=== PATIENT | female | born 1980 | race Caucasian/White ===

== ENCOUNTER 2016-12-19 16:12 | Emergency (ER) | payer MEDICAID ==
[~2016-12-19] VITALS: Ht 157.5 cm; Wt 86.4 kg
[2016-12-19 16:13] VITALS: BP 152/105; TEMP 98.7
[2016-12-19] MEDS ORDERED: COMPAZINE 110 MG/TAB PO (17:03)
[2016-12-19 17:57] VITALS: PULSE 75
== END 2016-12-19 17:57 | disposition home or self-care (01) ==
LOC: COL.ER 16:12
DX: R51 Headache (principal); H53.8 Other visual disturbances; R11.2 Nausea with vomiting, unspecified
CPT/HCPCS: J1200; J1885; J2550; J3010; J7030

== ENCOUNTER 2017-01-05 00:54 | Emergency (ER) | payer MEDICAID ==
[~2017-01-05] VITALS: Ht 157.5 cm; Wt 90.9 kg
[~2017-01-05 00:54] MED LIST: COMPAZINE 110 MG/TAB PO
[2017-01-05 00:55] VITALS: TEMP 97.1
[2017-01-05 01:49] LABS: BASO % 0.3 % (0.0-2.0); EOS # 0.1 (0.0-0.7); EOS % 1.9 % (0-4.0); GRAN # 4.2 (1.4-6.5); HEMATOCRIT 39.9 % (37.0-47.0); HEMOGLOBIN 12.9 g/dl (12.5-16.0); LYMPH % 30.1 % (20.0-51.0); MEAN CELL VOLUME 84 fl (80.0-100.0); MEAN CORPUSCULAR HEMOGLOBIN 27 pg (27.0-31.0); MEAN CORPUSCULAR HGB CONC 32 g/dl (33.0-37.0); MEAN PLATELET VOLUME 9.4 fl (7.4-10.4); MONO # 0.3 (0.1-0.6); MONO % 4.6 % (1.7-9.3); PLATELET COUNT 278 K/mm3 (130-400); RED BLOOD COUNT 4.77 M/mm3 (4.10-5.30); REDCELL DISTRIBUTION WIDTH-CV 13.9 % (11.5-14.5); WHITE BLOOD COUNT 6.7 K/mm3 (4.8-10.8)
[2017-01-05] MEDS ORDERED: TRI-SPRINTEC 281 TAB PO (02:33)
[2017-01-05 02:59] VITALS: BP 152/86; PULSE 82
== END 2017-01-05 03:00 | disposition home or self-care (01) ==
LOC: COL.ER 00:54
PROVIDERS: Emergency Medicine
DX: N93.8 Other specified abnormal uterine and vaginal bleeding (principal)

== ENCOUNTER 2017-08-09 00:04 | Emergency (ER) | payer MEDICAID ==
[~2017-08-09] VITALS: Ht 157.5 cm; Wt 86.4 kg
[~2017-08-09 00:04] MED LIST changes: +TRI-SPRINTEC 281 TAB PO
[2017-08-09 00:07] VITALS: BP 177/94; TEMP 99.3
[2017-08-09] MEDS ORDERED: PREDNISONE20 MG PO (00:22)
[2017-08-09 01:33] VITALS: PULSE 87
== END 2017-08-09 01:33 | disposition home or self-care (01) ==
LOC: COL.ER 00:04
DX: J45.901 Unspecified asthma with (acute) exacerbation (principal); Z98.51 Tubal ligation status
CPT/HCPCS: J7512

== ENCOUNTER 2017-10-12 10:47 | Emergency (ER) | payer MEDICAID ==
[~2017-10-12] VITALS: Ht 157.5 cm; Wt 86.4 kg
[~2017-10-12 10:47] MED LIST changes: +PREDNISONE20 MG PO
[2017-10-12 10:50] VITALS: BP 176/95; TEMP 98.3
[2017-10-12 12:34] VITALS: PULSE 77
== END 2017-10-12 12:34 | disposition home or self-care (01) ==
LOC: COL.ER 10:47
DX: G43.909 Migraine, unspecified, not intractable, without status migrainosus (principal)
CPT/HCPCS: J1200; J1885; J2765; J7030

== ENCOUNTER 2018-06-13 15:39 | Emergency (ER) | payer MEDICAID ==
[~2018-06-13] VITALS: Ht 157.5 cm; Wt 86.4 kg
[2018-06-13 15:43] VITALS: TEMP 99.4
[2018-06-13 16:23] LABS: BASO % 0.1 % (0.0-2.0); EOS # 0.1 (0.0-0.7); EOS % 1.1 % (0-4.0); GRAN # 8.5 (1.4-6.5); GRAN % 80.9 % (42.2-75.2); HEMATOCRIT 41.2 % (37.0-47.0); HEMOGLOBIN 13.6 g/dl (12.5-16.0); LYMPH # 1.5 (1.2-3.4); LYMPH % 13.9 % (20.0-51.0); MEAN CELL VOLUME 82 fl (80.0-100.0); MEAN CORPUSCULAR HEMOGLOBIN 27 pg (27.0-31.0); MEAN CORPUSCULAR HGB CONC 33 g/dl (33.0-37.0); MEAN PLATELET VOLUME 9.7 fl (7.4-10.4); MONO # 0.4 (0.1-0.6); MONO % 3.7 % (1.7-9.3); PLATELET COUNT 305 K/mm3 (130-400); REDCELL DISTRIBUTION WIDTH-CV 13.8 % (11.5-14.5)
[2018-06-13 16:37] LABS: ALBUMIN 4.1 gm/dL (3.5-5.0); BILIRUBIN,TOTAL 0.7 mg/dL (0.0-1.0); C-REACTIVE PROTEIN 3.5 mg/dL (0.0-0.9); CALCIUM 8.5 mg/dL (8.4-10.2); CREATININE, serum 0.54 mg/dL (0.52-1.25); POTASSIUM 3.7 mmol/L (3.4-5.0); TOTAL PROTEIN 7.8 gm/dL (6.4-8.2)
[2018-06-13 18:13] LABS: COLLECTION METHOD CLEAN CATCH
[2018-06-13 18:19] VITALS: BP 146/91
[2018-06-13 18:23] LABS: PH 5 (5-8); SQUAMOUS EPITHELIAL 0-2 /hpf; URINE APPEARANCE Clear; URINE BACTERIA None Seen /hpf; URINE BILIRUBIN Negative (NEGATIVE); URINE BLOOD 1+ (NEGATIVE); URINE COLOR Straw; URINE GLUCOSE Negative (NEGATIVE); URINE KETONE Negative (NEGATIVE); URINE LEUKOCYTE ESTERASE Negative (NEGATIVE); URINE NITRATE Negative (NEGATIVE); URINE PROTEIN(semi-quant) Negative (NEGATIVE); URINE RBC 0-2 /hpf; URINE UROBILINOGEN Negative (NEGATIVE)
[2018-06-13] MEDS ORDERED: FLAGYL500 MG PO (18:50)
[2018-06-13] MEDS ORDERED: NORCO 325 MG-51 TAB PO (18:50)
[2018-06-13] MEDS ORDERED: SEPTRA DS 8001 TAB PO (18:50)
[2018-06-13] MEDS ORDERED: ZOFRAN ODT4 MG PO (18:50)
[2018-06-13 19:05] VITALS: PULSE 89
== END 2018-06-13 19:15 | disposition home or self-care (01) ==
LOC: COL.ER 15:39
PROVIDERS: Emergency Medicine
DX: K57.92 Diverticulitis of intestine, part unspecified, without perforation or abscess without bleeding (principal); E11.9 Type 2 diabetes mellitus without complications; Z79.84 Long term (current) use of oral hypoglycemic drugs; Z98.51 Tubal ligation status; Z98.890 Other specified postprocedural states
CPT/HCPCS: J1885; J2405; J2550; J7030; Q9967

== ENCOUNTER 2018-08-15 10:14 | Emergency (ER) | payer MEDICAID ==
[~2018-08-15] VITALS: Ht 157.5 cm; Wt 81.8 kg
[~2018-08-15 10:14] MED LIST changes: +FLAGYL500 MG PO; +NORCO 325 MG-51 TAB PO; +SEPTRA DS 8001 TAB PO; +ZOFRAN ODT4 MG PO
[2018-08-15 10:20] VITALS: BP 163/76; TEMP 97.9
[2018-08-15] MEDS ORDERED: GLUCOPHAGE500 MG/TAB PO (11:24)
[2018-08-15 12:00] VITALS: PULSE 80
== END 2018-08-15 12:00 | disposition home or self-care (01) ==
LOC: COL.ER 10:14
DX: G43.909 Migraine, unspecified, not intractable, without status migrainosus (principal); Z90.710 Acquired absence of both cervix and uterus; Z98.51 Tubal ligation status; Z98.890 Other specified postprocedural states; Z88.1 Allergy status to other antibiotic agents
CPT/HCPCS: J1200; J1885; J2765; J7030

== ENCOUNTER 2019-01-09 18:20 | Emergency (ER) | payer MEDICAID ==
[~2019-01-09] VITALS: Ht 157.5 cm; Wt 90.0 kg
[~2019-01-09 18:20] MED LIST changes: +GLUCOPHAGE500 MG/TAB PO
[2019-01-09 18:26] VITALS: BP 163/92; PULSE 102
[2019-01-09] MEDS ORDERED: ZITHROMAX Z PA250 MG PO ×2 (19:35)
[2019-01-09] MEDS ORDERED: AMOXICILLIN 8751 TAB PO (19:36)
[2019-01-09 20:05] VITALS: TEMP 99
== END 2019-01-09 20:05 | disposition home or self-care (01) ==
LOC: COL.ER 18:20
DX: R50.9 Fever, unspecified (principal); J45.909 Unspecified asthma, uncomplicated; Z98.890 Other specified postprocedural states; Z98.51 Tubal ligation status

== ENCOUNTER 2019-05-04 06:28 | Emergency (ER) | payer MEDICAID ==
[~2019-05-04] VITALS: Ht 157.5 cm; Wt 87.7 kg
[~2019-05-04 06:28] MED LIST changes: +AMOXICILLIN 8751 TAB PO; +ZITHROMAX Z PA250 MG PO
[2019-05-04 07:16] LABS: STREP SCREEN POSITIVE
[2019-05-04] MEDS ORDERED: CEPHALEXIN500 M1 PO (07:30)
[2019-05-04 07:35] VITALS: BP 131/78; PULSE 79; TEMP 98.9
== END 2019-05-04 07:44 | disposition home or self-care (01) ==
LOC: COL.ER 06:28
PROVIDERS: Emergency Medicine
DX: J02.0 Streptococcal pharyngitis (principal)

== ENCOUNTER 2019-10-06 13:27 | Emergency (ER) | payer SELFPAY ==
[~2019-10-06 13:27] MED LIST changes: +CEPHALEXIN500 M1 PO
[2019-10-06 13:36] VITALS: TEMP 97.9
[2019-10-06 14:38] VITALS: BP 139/82
[2019-10-06 15:16] VITALS: PULSE 71
== END 2019-10-06 15:17 | disposition home or self-care (01) ==
LOC: COL.ER 13:27
DX: G43.909 Migraine, unspecified, not intractable, without status migrainosus (principal); Z90.710 Acquired absence of both cervix and uterus; Z88.1 Allergy status to other antibiotic agents; Z98.51 Tubal ligation status; Z98.890 Other specified postprocedural states; Z79.84 Long term (current) use of oral hypoglycemic drugs
CPT/HCPCS: J1200; J1885; J2765; J7030

== ENCOUNTER 2020-06-24 16:33 | Emergency (ER) | payer MEDICAID ==
[~2020-06-24] VITALS: Ht 157.5 cm; Wt 84.1 kg
[2020-06-24 16:41] VITALS: TEMP 98.6
[2020-06-24] MEDS ORDERED: ZOFRAN 4MG T4 MG/TAB PO (17:53)
[2020-06-24 18:10] VITALS: BP 143/70; PULSE 80
== END 2020-06-24 18:10 | disposition home or self-care (01) ==
LOC: COL.ER 16:33
DX: Z20.828 Contact with and (suspected) exposure to other viral communicable diseases (principal); Z98.51 Tubal ligation status; E66.9 Obesity, unspecified; E11.9 Type 2 diabetes mellitus without complications; Z79.84 Long term (current) use of oral hypoglycemic drugs

== ENCOUNTER 2020-07-18 02:51 | Emergency (ER) | payer MEDICAID ==
[~2020-07-18] VITALS: Ht 157.5 cm; Wt 84.1 kg
[~2020-07-18 02:51] MED LIST changes: +ZOFRAN 4MG T4 MG/TAB PO
[2020-07-18 02:58] VITALS: TEMP 97.5
[2020-07-18 03:37] LABS: EOS % 0.5 % (0-4.0); GRAN # 2.5 (1.4-6.5); HEMATOCRIT 43.2 % (37.0-47.0); HEMOGLOBIN 14.3 g/dl (12.5-16.0); LYMPH # 1.2 (1.2-3.4); LYMPH % 29.9 % (20.0-51.0); MEAN CELL VOLUME 82 fl (80.0-100.0); MEAN CORPUSCULAR HEMOGLOBIN 27 pg (27.0-31.0); MEAN CORPUSCULAR HGB CONC 33 g/dl (33.0-37.0); MEAN PLATELET VOLUME 9.4 fl (7.4-10.4); MONO # 0.2 (0.1-0.6); MONO % 5.3 % (1.7-9.3); PLATELET COUNT 238 K/mm3 (130-400); RED BLOOD COUNT 5.27 M/mm3 (4.10-5.30); REDCELL DISTRIBUTION WIDTH-CV 13.9 % (11.5-14.5)
[2020-07-18 03:45] LABS: ALBUMIN 4.3 gm/dL (3.5-5.0); BILIRUBIN,TOTAL 0.5 mg/dL (0.0-1.0); CALCIUM 8.6 mg/dL (8.4-10.2); CREATININE, serum 0.52 (0.52-1.25)
[2020-07-18 04:38] VITALS: BP 125/78; PULSE 80
== END 2020-07-18 04:38 | disposition home or self-care (01) ==
LOC: COL.ER 02:51
PROVIDERS: Emergency Medicine
DX: U07.1 COVID-19 (principal); Z90.710 Acquired absence of both cervix and uterus

== ENCOUNTER 2021-07-23 12:34 | Emergency (ER) | payer MEDICAID ==
[~2021-07-23] VITALS: Ht 157.5 cm; Wt 86.4 kg
[2021-07-23 13:03] LABS: BASO % 0.4 % (0.0-2.0); EOS # 0.1 (0.0-0.7); EOS % 1.1 % (0-4.0); GRAN # 5.2 (1.4-6.5); GRAN % 69.6 % (42.2-75.2); HEMATOCRIT 42.1 % (37.0-47.0); LYMPH # 1.8 (1.2-3.4); MEAN CELL VOLUME 81 fl (80.0-100.0); MEAN CORPUSCULAR HEMOGLOBIN 27 pg (27.0-31.0); MEAN CORPUSCULAR HGB CONC 33 g/dl (33.0-37.0); MEAN PLATELET VOLUME 9.3 fl (7.4-10.4); MONO # 0.4 (0.1-0.6); MONO % 4.8 % (1.7-9.3); PLATELET COUNT 326 K/mm3 (130-400); RED BLOOD COUNT 5.17 M/mm3 (4.10-5.30); REDCELL DISTRIBUTION WIDTH-CV 14.2 % (11.5-14.5)
[2021-07-23 13:23] LABS: COLLECTION METHOD CLEAN CATCH
[2021-07-23 13:33] LABS: ALBUMIN 3.9 gm/dL (3.5-5.0); BILIRUBIN,TOTAL 0.7 mg/dL (0.2-1.2); C-REACTIVE PROTEIN 1.2 mg/dL (0.00-0.50); CALCIUM 9.4 mg/dL (8.4-10.2); CREATININE, serum 0.76 mg/dL (0.57-1.11); POTASSIUM 3.6 mmol/L (3.5-4.5); TOTAL PROTEIN 7.9 gm/dL (6.2-8.1)
[2021-07-23 13:45] LABS: AMORPHOUS CRYSTAL Present /uL; MUCOUS Present /lpf; PH 5 (5-8); URINE APPEARANCE Cloudy; URINE BACTERIA Occasional /hpf; URINE BILIRUBIN Negative (NEGATIVE); URINE BLOOD 3+ (NEGATIVE); URINE COLOR Yellow; URINE GLUCOSE Negative (NEGATIVE); URINE KETONE Trace (NEGATIVE); URINE LEUKOCYTE ESTERASE 1+ (NEGATIVE); URINE NITRATE Negative (NEGATIVE); URINE PROTEIN(semi-quant) 2+ (NEGATIVE); URINE RBC >50 /hpf; URINE UROBILINOGEN Negative (NEGATIVE)
[2021-07-23] MEDS ORDERED: NORCO 325 MG-51 TAB PO (14:46)
[2021-07-23] MEDS ORDERED: OMNICEF 300MG300 MG PO (15:23)
[2021-07-23 15:45] VITALS: BP 148/78; PULSE 74; TEMP 97.9
== END 2021-07-23 15:45 | disposition home or self-care (01) ==
LOC: COL.ER 12:34
PROVIDERS: Family Medicine
DX: N13.2 Hydronephrosis with renal and ureteral calculous obstruction (principal); I10 Essential (primary) hypertension; Z88.1 Allergy status to other antibiotic agents; Z32.02 Encounter for pregnancy test, result negative
CPT/HCPCS: J2270; J2405; J7120; Q9967

== ENCOUNTER → 2021-09-12 | Outpatient (CLI) | payer MEDICAID ==
[~2021-09-12] MED LIST changes: +OMNICEF 300MG300 MG PO
== END ==
LOC: COL.RAD 08:49
DX: N99.81 Other intraoperative complications of genitourinary system (principal)

== ENCOUNTER 2022-04-03 20:44 | Emergency (ER) | payer MEDICAID ==
[~2022-04-03] VITALS: Ht 157.5 cm; Wt 91.8 kg
[2022-04-03 23:54] LABS: BASO % 0.3 % (0.0-2.0); EOS # 0.1 K/mm3 (0.0-0.7); EOS % 1.5 % (0.0-4.0); GRAN # 4.8 K/mm3 (1.4-6.5); GRAN % 65.5 % (42.2-75.2); HEMATOCRIT 37.9 % (37.0-47.0); HEMOGLOBIN 12.3 g/dl (12.5-16.0); LYMPH % 27.5 % (20.0-51.0); MEAN CELL VOLUME 82 fl (80.0-100.0); MEAN CORPUSCULAR HEMOGLOBIN 27 pg (27-31); MEAN CORPUSCULAR HGB CONC 33 g/dl (33.0-37.0); MEAN PLATELET VOLUME 9.2 fl (7.4-10.4); MONO # 0.4 K/mm3 (0.1-0.6); MONO % 4.9 % (1.7-9.3); PLATELET COUNT 276 K/mm3 (130-400); RED BLOOD COUNT 4.63 M/mm3 (4.10-5.30); REDCELL DISTRIBUTION WIDTH-CV 14.2 % (11.5-14.5)
[2022-04-04 00:13] LABS: ALBUMIN 3.2 gm/dL (3.5-5.0); BILIRUBIN,TOTAL 0.4 mg/dL (0.2-1.2); C-REACTIVE PROTEIN 1.85 mg/dL (0.00-0.50); CALCIUM 8.6 mg/dL (8.4-10.2); CREATININE, serum 0.65 mg/dL (0.57-1.11); POTASSIUM 3.5 mmol/L (3.5-4.5); TOTAL PROTEIN 6.8 gm/dL (6.2-8.1)
[2022-04-04 01:37] VITALS: TEMP 98
[2022-04-04] MEDS ORDERED: CEPHALEXIN500 M1 PO (03:19)
[2022-04-04 03:43] VITALS: BP 115/80; PULSE 72
== END 2022-04-04 03:46 | disposition home or self-care (01) ==
LOC: COL.ER 20:44
PROVIDERS: Nurse Practitioner
DX: R59.0 Localized enlarged lymph nodes (principal); Z88.1 Allergy status to other antibiotic agents
CPT/HCPCS: J1170; Q9967

== ENCOUNTER 2024-05-02 11:23 | Emergency (ER) | payer MEDICAID ==
[~2024-05-02] VITALS: Ht 157.5 cm; Wt 63.6 kg
[2024-05-02 11:40] VITALS: TEMP 98.6
[2024-05-02] MEDS ORDERED: NS 1,000 ML IV ONE (12:00)
[2024-05-02 12:10] LABS: COLLECTION METHOD CLEAN CATCH
[2024-05-02 12:19] LABS: BASO % 0.4 % (0.0-2.0); EOS # 0.1 K/mm3 (0.0-0.7); EOS % 1.8 % (0.0-4.0); GRAN % 59.3 % (42.2-75.2); HEMATOCRIT 43.1 % (37.0-47.0); HEMOGLOBIN 13.9 g/dl (12.5-16.0); LYMPH # 1.7 K/mm3 (1.2-3.4); LYMPH % 33.5 % (20.0-51.0); MEAN CELL VOLUME 90 fl (80.0-100.0); MEAN CORPUSCULAR HEMOGLOBIN 29 pg (27-31); MEAN CORPUSCULAR HGB CONC 32 g/dl (33.0-37.0); MEAN PLATELET VOLUME 9.8 fl (7.4-10.4); MONO # 0.3 K/mm3 (0.1-0.6); PLATELET COUNT 270 K/mm3 (130-400)
[2024-05-02 12:22] LABS: URINE APPEARANCE CLEAR (CLEAR/HAZY); URINE BLOOD NEGATIVE (NEGATIVE); URINE COLOR YELLOW (YELLOW); URINE GLUCOSE NEGATIVE (NEGATIVE); URINE KETONE NEGATIVE (NEGATIVE); URINE NITRATE NEGATIVE (NEGATIVE); URINE PROTEIN(semi-quant) NEGATIVE (NEGATIVE); URINE UROBILINOGEN 0.2 E.U/dL (0.2-1.0)
[2024-05-02 12:29] LABS: MONOSCREEN NEGATIVE
[2024-05-02 12:37] LABS: ALBUMIN 3.7 g/dL (3.5-5.0); BILIRUBIN,TOTAL 0.8 mg/dL (0.2-1.2); CALCIUM 9.6 mg/dL (8.4-10.2); CREATININE, serum 0.65 mg/dL (0.57-1.11); POTASSIUM 3.6 mEq/L (3.5-4.5); TOTAL PROTEIN 6.9 g/dl (6.2-8.1)
[2024-05-02 13:26] VITALS: BP 136/70; PULSE 71
[2024-05-07] MEDS ORDERED: NORCO 325 MG-51 TAB PO (19:01)
== END 2024-05-02 13:28 | disposition home or self-care (01) ==
LOC: COL.ER 11:23
PROVIDERS: Nurse Practitioner
DX: R53.81 Other malaise (principal); R53.83 Other fatigue; Z91.040 Latex allergy status
CPT/HCPCS: J7030

== ENCOUNTER 2024-05-24 11:08 | Emergency (ER) | payer MEDICAID ==
[~2024-05-24] VITALS: Ht 157.5 cm; Wt 63.6 kg
[2024-05-24 11:13] VITALS: TEMP 98.3
[2024-05-24] MEDS ORDERED: hydrOXYzine HCl 25 MG TAB PO ONE (12:00)
[2024-05-24] MEDS ORDERED: predniSONE 20 MG TAB PO ONE (12:00)
[2024-05-24] MEDS ORDERED: ATARAX 25MG25 MG/TAB PO (12:21)
[2024-05-24] MEDS ORDERED: PREDNISONE20 MG PO (12:24)
[2024-05-24 12:38] VITALS: BP 125/73; PULSE 50
== END 2024-05-24 12:38 | disposition home or self-care (01) ==
LOC: COL.ER 11:08
DX: L50.0 Allergic urticaria (principal); Z91.040 Latex allergy status
CPT/HCPCS: J7512